=== PATIENT | male | born 1940 | race Two or more races ===

== ENCOUNTER → 2018-07-20 | Outpatient (CLI) | payer MEDICARE, BC ==
[~2018-07-20] MED LIST: IOPAMIDOL 370 MG/ML 200 ML INFUS..BTL INJ ONE; SODIUM CHLORIDE 0.9% 50ML 50 ML ONE
[2018-07-20 11:35] LABS: BLOOD UREA NITROGEN 7 mg/dL (7-26); BUN/CREATININE RATIO 7 (6-25); CREATININE, SERUM 0.97 mg/dL (0.72-1.25); EST GLOMERULAR FILTRATION RATE > 60 ML/MIN (60-)
--- NOTE | 2018-07-20 12:24 | Diagnostic Imaging Report ---
PROCEDURE: CT ABDOMEN WITH CONTRAST TECHNIQUE: The abdomen was scanned utilizing a multidetector helical scanner from the diaphragm to the iliac crest after the IV administration of 100 cc of Isovue 370 and the oral administration of 900 cc of water. Coronal and sagittal multiplanar reformations were obtained. COMPARISON: None. INDICATIONS: ABDOMEN PAIN FINDINGS: LOWER THORAX: Coronary atherosclerosis. HEPATOBILIARY: Status post cholecystectomy. No focal hepatic lesions. No biliary ductal dilatation. Two punctate calcifications are present adjacent to the liver posteriorly, which may reflect dropped gallstones or granulomas. SPLEEN: No splenomegaly. PANCREAS: No focal masses or ductal dilatation. ADRENALS: No adrenal nodules. KIDNEYS: No hydronephrosis, stones, or solid mass lesions. PERITONEUM / RETROPERITONEUM: No free air or fluid. LYMPH NODES: No lymphadenopathy. VESSELS: Unremarkable. GI TRACT: Visualized portions of the bowel demonstrate no distention or wall thickening. Multiple surgical clips project in the upper abdomen adjacent to the stomach. Partially seen anastomosis at the sigmoid colon. BONES AND SOFT TISSUES: No acute osseous abnormality. No suspicious lytic or blastic lesion. IMPRESSION: No acute abnormality in the abdomen. Dictated by: QIANA WELCH M.D. on 07/20/2018 at 12:30 Electronically approved by: QIANA WELCH M.D. on 07/20/2018 at 12:30
== END ==
LOC: CT 10:32
PROVIDERS: ATTEND Internal Medicine Gastroenterology
DX: R10.13 Epigastric pain (principal); R10.11 Right upper quadrant pain; E66.3 Overweight; Z71.3 Dietary counseling and surveillance
CPT/HCPCS: 36415; 74160; 82565; 84520; Q9967